=== PATIENT | male | born 1970 | race American Indian/Alaskan Native ===

== ENCOUNTER 2020-05-23 08:00 | Emergency (ER) | payer MEDICARE ==
--- NOTE | 2020-05-23 08:15 | Emergency Department Report ---
ED CPR HPI - General Stated Complaint: CARDIAC ARREST Time Seen by Provider: 05/23/20 08:15 - History of Present Illness Initial Comments: Patient is a 49-year-old male past medical history of obesity and end-stage renal disease on dialysis who presents with cardiac arrest. Patient was brought in by EMS for confusion and altered mental status patient missed dialysis previously. ED Review of Systems ROS: Stated complaint: CARDIAC ARREST Other details as noted in HPI Comment: Unobtainable due to pts medical conditions ED Physical Exam - General General appearance: other (obtunded ) - Head Head exam: Present: atraumatic - Eye Eye exam: Present: other (pupils fixed and dilated ) - Neck Neck exam: Present: normal inspection - Respiratory Respiratory exam: Present: other (no spontaneous breath sounds ) - Cardiovascular Cardiovascular Exam: Present: other (no spontaneous heart beat ) - GI/Abdominal GI/Abdominal exam: Present: distended, hernia (ventaral) - Extremities Exam Extremities exam: Present: other - Neurological Exam Neurological exam: Present: other (unable to examin) - Psychiatric Psychiatric exam: Present: other (unable to examin) - Skin Skin exam: Present: other (cold ) - Intubation Time Out Performed: No Sedative: none Laryngoscope: Walter Size: 4 ET Tube Size: 8.5 Tube Secured Depth (cm): 26 Tube Secured Location: lips Tube Placement Confirmation: visualized tube passing t Patient Tolerated Procedure: well Intubation Complications: none ED Medical Decision Making - Medical Decision Making Chief medical diagnosis: Cardiac arrest Patient had approximately 30 minutes of CPR See code sheet for further details time of was 8:14 Critical care attestation.: If time is entered above; I have spent that time in minutes in the direct care of this critically ill patient, excluding procedure time. ED Disposition Clinical Impression: Cardiac arrest Disposition: DC-20 Is pt being admited?: No Does the pt Need Aspirin: No Condition: Stable Referrals: [facility] Terry AC [Other] - 3-5 Days
[2020-05-23] MEDS ORDERED: SODIUM BICARB 8.4% 50 MEQ/50 ML SYRINGE IV ONE (14:48)
[2020-05-23] MEDS ORDERED: CALCIUM CHLORIDE 1,000 MG/10 ML SYRINGE IV ONE (14:48)
[2020-05-23] MEDS ORDERED: EPINEPHrine 1 MG/10 ML SYRINGE ONE (14:48)
== END 2020-05-23 09:00 ==
LOC: ED 08:00
DX: I46.9 Cardiac arrest, cause unspecified (principal)
CPT/HCPCS: 31500; 92950; 99285; J0171